=== PATIENT | male | born 1975 | race American Indian/Alaskan Native ===

== ENCOUNTER 2022-12-24 07:44 | Inpatient (IN) | payer OTHER ==
[~2022-12-24] VITALS: Ht 172.7 cm; Wt 120.5 kg
[2022-12-24 08:12] LABS: BASOPHILS % (AUTO) 0.6 % (0.0-2.0); EOSINOPHILS % (AUTO) 4.4 % (1.0-6.0); HEMATOCRIT 43.4 % (41-53); HEMOGLOBIN 14.5 g/dL (13.5-17.5); LYMPHOCYTES # (AUTO) 1.8 K/uL (1.0-4.8); LYMPHOCYTES % (AUTO) 26.6 % (22.0-44.0); MEAN CORPUSCULAR HEMOGLOBIN 31.2 pg (26.0-34.0); MEAN CORPUSCULAR HGB CONC 33.3 G/dL (31.0-37.0); MEAN CORPUSCULAR VOLUME 94 fL (80-100); MONOCYTES # (AUTO) 0.5 K/uL (0.1-1.0); MONOCYTES % (AUTO) 8.2 % (2.0-9.0); NEUTROPHILS % (AUTO) 60.2 % (40.0-70.0); PLATELET COUNT (AUTO) 248 K/uL (150-450); RED BLOOD CELL COUNT(AUTO) 4.64 MIL/uL (4.50-5.90); RED CELL DISTRIBUTION WIDTH 13.3 % (11.5-14.5); WHITE BLOOD COUNT (AUTO) 6.6 K/uL (4.5-11.0)
[2022-12-24 08:19] LABS: COVID AG,FIA SOURCE NASAL SWAB
[2022-12-24 08:21] LABS: ANION GAP 7 mmol/L (8-16); CALCIUM, TOTAL 8.7 mg/dL (8.8-10.5); CARBON DIOXIDE 29 mmol/L (22-29); CHLORIDE 105 mmol/L (98-107); CREATININE 0.88 mg/dL (0.60-1.30); GLOMERULAR FILTR. RATE CALC > 60 mL/min (>60); GLUCOSE,RANDOM 130 mg/dL (70-110); POTASSIUM 3.5 mmol/L (3.5-5.1); SODIUM SERUM 141 mmol/L (136-145); UREA NITROGEN, BLOOD 16 mg/dL (7-18)
[2022-12-24 08:26] LABS: ALANINE AMINOTRANSFERASE 30 U/L (12-78); ALBUMIN 3.3 g/dL (3.4-5.0); ALKALINE PHOSPHATASE 61 U/L (46-116); ASPARTATE AMINOTRANSFERASE 22 U/L (15-37); BILIRUBIN,TOTAL 0.4 mg/dL (0.1-1.0); TOTAL PROTEIN, SERUM 6.6 g/dL (6.4-8.2)
[2022-12-24 08:32] LABS: ALCOHOL, BLOOD (SERUM) < 3 mg/dL (0-10)
[2022-12-24 08:41] LABS: SARS-COV2 (COVID) ANTIGEN,FIA Negative (Negative)
[2022-12-24 11:46] VITALS: BP 112/67; PULSE 69; RESP 18; TEMP 97.9
[2022-12-24 12:54] LABS: PH,URINE DRUG SCREEN 5.5 (5.0-8.0)
[2022-12-24] MEDS ORDERED: BISACODYL 10 MG RECTAL RECTAL SUPPOSITORY PR PRN (13:00)
[2022-12-24] MEDS ORDERED: ONDANSETRON HCL 4 MG/2 ML VIAL IVP PRN (13:00)
[2022-12-24] MEDS ORDERED: MAGNESIUM HYDROXIDE SUSPENSION 30 ML UDCUP PO PRN (13:00)
[2022-12-24] MEDS ORDERED: MAGNESIUM SULFATE 2 GM, MVI, ADULT NO.1 WITH VIT K 10 ML, THIAMINE 100 MG, FOLIC ACID 1... IV ONE ×5 (13:00)
[2022-12-24] MEDS ORDERED: LORazepam 2 MG/ML VIAL IVP PRN (13:00)
[2022-12-24] MEDS ORDERED: ZOLPIDEM TARTRATE 5 MG TABLET PO PRN (13:00)
[2022-12-24 13:01] LABS: ALCOHOL, URINE DRUG SCREEN NEGATIVE (NEGATIVE); AMPHET/METH SCREEN,URINE POSITIVE (NEGATIVE); BARBITURATE SCREEN, URINE NEGATIVE (NEGATIVE); BENZODIAZEPINES SCREEN,URINE NEGATIVE (NEGATIVE); CANNABINOID SCREEN,URINE NEGATIVE (NEGATIVE); COCAINE SCREEN,URINE NEGATIVE (NEGATIVE); METHADONE SCREEN, URINE NEGATIVE (NEGATIVE); OPIATE SCREEN,URINE NEGATIVE (NEGATIVE); PHENCYCLIDINE SCREEN,URINE NEGATIVE (NEGATIVE)
[2022-12-24 16:16] VITALS: BP 110/62; PULSE 67; RESP 18; TEMP 97.8
[2022-12-24] MEDS: HEPARIN SODIUM,PORCINE 5,000 UNITS/ML VIAL SQ SCH (16:17)
[2022-12-24] MEDS: ACETAMINOPHEN 325 MG TABLET PO PRN (18:25)
[2022-12-24 19:40] VITALS: BP 113/65; PULSE 71; RESP 20; TEMP 97.5
[2022-12-24] MEDS: DOCUSATE SODIUM 100 MG CAPSULE PO SCH (21:00)
[2022-12-25 04:37] VITALS: BP 99/53; PULSE 65; RESP 20; TEMP 97.6
[2022-12-25] MEDS: ACETAMINOPHEN 325 MG TABLET PO PRN ×2 (04:56→15:52)
[2022-12-25 08:05] VITALS: BP 109/71; PULSE 69; RESP 20; TEMP 98.4
[2022-12-25] MEDS: HEPARIN SODIUM,PORCINE 5,000 UNITS/ML VIAL SQ SCH ×4 (08:31→23:26)
[2022-12-25] MEDS: PANTOPRAZOLE SODIUM 40 MG DR TABLET PO SCH (09:00)
[2022-12-25] MEDS: DOCUSATE SODIUM 100 MG CAPSULE PO SCH ×2 (09:00→21:00)
[2022-12-25 14:06] LABS: HEPATITIS C AB (EIA) Non Reactive (Non Reactive)
[2022-12-25 20:38] VITALS: BP 117/66; PULSE 65; RESP 20; TEMP 98
[2022-12-26 04:17] VITALS: BP 103/66; PULSE 70; RESP 20; TEMP 97.7
[2022-12-26 08:01] VITALS: BP 108/47; PULSE 68; RESP 18; TEMP 98.1
[2022-12-26] MEDS: PANTOPRAZOLE SODIUM 40 MG DR TABLET PO SCH (08:25)
[2022-12-26] MEDS: HEPARIN SODIUM,PORCINE 5,000 UNITS/ML VIAL SQ SCH (08:25)
[2022-12-26] MEDS: DOCUSATE SODIUM 100 MG CAPSULE PO SCH (08:26)
== END 2022-12-26 16:30 | DRG 897 ==
LOC: EMS 07:45 → 6S 10:03
PROVIDERS: ADMIT Internal Medicine; ATTEND Internal Medicine
DX: F11.13 Opioid abuse with withdrawal (principal); Z68.41 Body mass index [BMI] 40.0-44.9, adult; F10.139 Alcohol abuse with withdrawal, unspecified; R73.9 Hyperglycemia, unspecified; E66.9 Obesity, unspecified; F31.9 Bipolar disorder, unspecified; Y90.0 Blood alcohol level of less than 20 mg/100 ml; Z20.822 Contact with and (suspected) exposure to COVID-19
CPT/HCPCS: 71045; 80053; 80307; 83036; 85025; 86803; 87340; 93005; 99285; G0480; J1644; J3411; J3475; J3490; J7030; 36415-L1; 36415-TC